=== PATIENT | female | born 1975 | race Caucasian/White ===

== ENCOUNTER 2018-05-26 14:31 | Emergency (ER) | payer SELFPAY ==
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
[2018-05-26] MEDS ORDERED: ACETAMINOPHEN 500 MG TABLET PO ONE (14:51)
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
== END 2018-05-26 16:15 | disposition home or self-care (01) ==
LOC: ER 14:31
DX: S16.1XXA Strain of muscle, fascia and tendon at neck level, initial encounter (principal); V59.88XA Occupant (driver) (passenger) of pick-up truck or van injured in other specified transport accidents, initial encounter; Y92.410 Unspecified street and highway as the place of occurrence of the external cause; S46.911A Strain of unspecified muscle, fascia and tendon at shoulder and upper arm level, right arm, initial encounter
CPT/HCPCS: 70450; 71046; 72125; 99283